=== PATIENT | female | born 1985 | race Caucasian/White ===

== ENCOUNTER 2018-05-22 15:30 | Emergency (ER) | payer SELFPAY ==
[2018-05-22 15:46] VITALS: BP 125/82
[2018-05-22] MEDS ORDERED: Albuterol 2.5 MG/3 ML NEB.SOL* (0.083%) INH ONE (16:22)
--- NOTE | 2018-05-22 16:27 | ED ---
HPI Cardiac - HPI Summary HPI Summary: Patient presents with URI symptoms w/ cough 6 days. This started as nasal congestion which moved into her throat and is now on her chest. She is concerned about this moving into her chest as her cough is intermittently productive and she has chest tightness with intermittent shortness of breath. She had symptoms like this last year was diagnosed with bronchitis. She has a history of pneumonia as a toddler but no history of prematurity or RSV. She did have secondhand smoke exposure throughout her childhood and smokes herself currently on a social basis. She also admits to smoking marijuana occasionally. Has been having intermittent subjective fever, chills - no N/V/D, LOCKWOOD, neck stiffness, hemoptysis or chest pain. Admits to an element of PND throughout but feels this is improving. Had bronchitis last year and albuterol improved her sx a great deal - had an inhaler at home and used it prior to arrival - feels her chest is more open since. - History of Current Complaint Chief Complaint: UCRespiratory Stated Complaint: CHEST CONGESTION Time Seen by Provider: 05/22/18 15:58 Hx Obtained From: Patient, Family/Design Engineering Specialist - mom Hx Last Menstrual Period: 3 WEEKS AGO Pain Intensity: 0 - Allergy/Home Medications Allergies/Adverse Reactions: Allergies Allergy/AdvReac Type Severity Reaction Status Date / Time Penicillins Allergy Severe Shortness Verified 05/22/18 15:46 of Breath PMH/Surg Hx/FS Hx/Imm Hx Previously Healthy: Yes Respiratory History: Reports: Hx Asthma - possibly? 2nd hand smoke exposure, personal smoker and h/o bronchitis, Hx Pneumonia - as a toddler Infectious Disease History: No Infectious Disease History: Denies: Traveled Outside the [place] in Last 30 Days - Family History Known Family History: Positive: Other - mom & dad - h/o smoking - Social History Occupation: Employed Full-time - retail shop in [employer] Alcohol Use: Weekly - weekends Substance Use Type: Reports: Marijuana - occasionally Hx Tobacco Use: Yes Smoking Status (MU): Current Some Day Smoker Review of Systems Positive: Fever, Chills, Fatigue - feels wiped out Eyes: Negative Positive: Sore Throat, Ear Ache, Nasal Discharge Negative: Chest Pain Positive: Shortness Of Breath, Cough Gastrointestinal: Negative Positive: no symptoms reported Musculoskeletal: Negative Skin: Negative Neurological: Negative Psychological: Normal All Other Systems Reviewed And Are Negative: Yes Physical Exam Triage Information Reviewed: Yes Vital Signs On Initial Exam: Initial Vitals Temp Pulse Resp BP Pulse Ox 98.3 F 65 16 125/82 97 05/22/18 15:36 05/22/18 15:36 05/22/18 15:36 05/22/18 15:36 05/22/18 15:36 Vital Signs Reviewed: Yes Appearance: Positive: Well-Appearing, No Pain Distress, Well-Nourished Skin: Positive: Warm, Skin Color Reflects Adequate Perfusion, Dry - no rash Head/Face: Positive: Normal Head/Face Inspection Eyes: Positive: Normal, EOMI, Conjunctiva Clear. Negative: Conjunctiva Inflammed, Discharge ENT: Positive: Normal ENT inspection, Hearing grossly normal, Pharyngeal erythema - mild, cobblestoning, Nasal congestion, TMs normal. Negative: Tonsillar swelling, Tonsillar exudate Neck: Positive: Supple, Nontender, No Lymphadenopathy Respiratory/Lung Sounds: Positive: Breath Sounds Present, Rhonchi, Wheezes - musical wheeze. Negative: Rales, Stridor, Unable to speak in full sentences, Fatigue Cardiovascular: Positive: Normal, RRR, S1, S2. Negative: Murmur, Rub, Leg Edema Left, Leg Edema Right Abdomen Description: Positive: Nontender, Soft Bowel Sounds: Positive: Present Musculoskeletal: Positive: Normal, Strength/ROM Intact Neurological: Positive: Normal, Sensory/Motor Intact, Alert, Oriented to Person Place, Time, CN Intact II-III Psychiatric: Positive: Normal Diagnostics - Vital Signs Vital Signs Temp Pulse Resp BP Pulse Ox 05/22/18 15:36 98.3 F 65 16 125/82 97 - Laboratory Lab Statement: Any lab studies that have been ordered have been reviewed, and results considered in the medical decision making process. Re-Evaluation - Re-Evaluation First Eval Change: Improved - s/p neb - chest clear, breathing easier Disposition - Diagnoses Provider Diagnoses: Bronchitis Discharge - Sign-Out/Discharge Documenting (check all that apply): Patient Departure All imaging exams completed and their final reports reviewed: No Studies - Discharge Plan Condition: Stable Disposition: HOME Prescriptions: Albuterol HFA INHALER* [Ventolin HFA Inhaler*] 2 puff INH Q6H PRN #1 mdi PRN Reason: Wheezing Patient Education Materials: Acute Bronchitis (ED), How to Stop Smoking (ED) Additional Instructions: Use inhaler as directed. [facility] or if worse, go to ED You may try the following to aid in symptom relief: Nasal wash (netti pot or saline spray) & salt water throat gargles 2 x day Drink you body weight in ounces of water every day Sleep 8+ hours per night Avoid Dairy and sugar Hot herbal/decaf tea with lemon & honey Chicken broth (preferably organic, free range chicken) Humidifier in house, but especially near bed at night Keep home temperature at 68F or less to reduce dryness Use cough drops/throat lozenges Try a facial steam with or without eucalyptus essential oil or Ryan's Vapor rub for congestion Avoid smoke, candles, perfumes, colognes, scented soaps/detergents , air fresheners and cleaning chemicals as these can cause airway irritation and trigger coughing Start Vitamin D3 5000iu and Vitamin C 1000mg every day x winter months - Billing Disposition and Condition Condition: STABLE Disposition: Home
== END 2018-05-22 17:30 | disposition home or self-care (01) ==
LOC: UCEAST 15:30
DX: J40 Bronchitis, not specified as acute or chronic (principal); Z88.0 Allergy status to penicillin; Z72.0 Tobacco use
CPT/HCPCS: 99202; G0463